=== PATIENT | female | born 1970 | race Caucasian/White ===

== ENCOUNTER 2017-01-13 19:28 | Emergency (ER) | payer OTHER ==
[~2017-01-13] VITALS: Ht 165.1 cm; Wt 96.3 kg
[~2017-01-13 19:28] MED LIST: HYDR-2768 PO; NAPR220T95 PO; PRIN20TA2 PO
[2017-01-13 19:46] VITALS: BP 130/74; PULSE 89; TEMP 98.5; O2SAT 98
[2017-01-13 20:05] VITALS: BP 133/93; PULSE 87; RESP 18; TEMP 98.5; O2SAT 96
[2017-01-13] MEDS ORDERED: NORV2.5T PO (20:05)
[2017-01-13] MEDS ORDERED: LISI-515 PO (20:05)
[2017-01-13] MEDS ORDERED: HYDR25TA5 PO (20:05)
--- NOTE | 2017-01-13 20:24 | PD ---
HPI Chief Complaint: Chest Pain Time Seen by Provider: 20:17 Travel History International Travel<30 days: No Contact w/Intl Traveler<30days: No Traveled to known affect area: No History of Present Illness HPI 46-year-old female presents to the emergency department for complaint of retrosternal and right-sided chest pain that has now moved to the left chest since last evening. Patient rates discomfort 7/10 in intensity. Patient denies any abdominal pain. Patient does report pain has radiated into the back. Patient denies any shortness of breath sweats nausea or vomiting. Patient states has had similar discomfort although of less intensity and shorter duration in the past but is unable to identify when. He has not been recent. Patient has history of hypertension but denies personal history of diabetes dyslipidemia or tobacco use. Patient is status post hysterectomy. Patient denies any prior history of gallbladder disease gastritis peptic ulcer disease or pancreatitis. Patient denies family history of premature onset heart disease. Patient has used multiple [id number] antacid preparations without symptomatic relief. Patient was able to eat toast today without worsening symptoms. Patient did not drinking fluids seem to aggravate her symptoms. Last evening's meal was a flat bread mozzarella sandwich and did not associate symptom onset postprandial. PFSH Past Medical History Narrative Medical Hypertension migraine MRSA nasal infection pneumonia hysterectomy tubal ligation ; no tobacco use; nursing notes reviewed Cancer: No Cardiovascular Problems: No Diabetes: No Diminished Hearing: No Endocrine: No Gastrointestinal Disorders: No Glaucoma: No Genitourinary: No Hepatitis: No Hiatal Hernia: No Hypertension: Yes Immune Disorder: No Implanted Vascular Access Dvce: No Medical other: No Musculoskeletal: No Neurologic: No Psychiatric: No Reproductive: Yes (posterior repair) Respiratory: Yes (hx of pneumonia in the 90's) Integumentary: Yes (MSRA OF NOSE 2 YEARS AGO) Migraines: Yes Thyroid Disease: No Tetanus Vaccination: Unknown Influenza Vaccination: Yes ?: Not Tubal Ligation: Yes Past Surgical History AICD: No Gynecologic Surgery: Yes (hysterectomy tubal and ablation) Hysterectomy: Yes Joint Replacement: No Pacemaker: No Other Surgery: Yes (TUBAL LIGATION ABLATION) Social History Alcohol Use: Yes (SOCIALLY) Tobacco Use: No Substance Use: No Allergies-Medications (Allergen,Severity, Reaction): Coded Allergies: No Known Allergies (Verified , 01/13/17) Reported Meds & Prescriptions Reported Meds & Active Scripts Active Reported Norvasc (Amlodipine Besylate) 2.5 Mg Tab 2.5 Mg PO DAILY Hydrochlorothiazide 25 Mg Tab 25 Mg PO DAILY Lisinopril 20 Mg Tab 20 Mg PO BID Review of Systems Except as stated in HPI: all other systems reviewed are Neg General / Constitutional: No: Fever, Chills HENT: No: Congestion Cardiovascular: Positive: Chest Pain or Discomfort Respiratory: No: Shortness of Breath Gastrointestinal: No: Nausea, Vomiting, Abdominal Pain Genitourinary: No: Flank Pain Musculoskeletal: No: Myalgias, Arthralgias Skin: No Rash Neurologic: No: Weakness Psychiatric: No: Anxiety Hematologic/Lymphatic: No: Lymph Node Enlargement Physical Exam Narrative GENERAL: Well-developed well-nourished female in no acute distress no respiratory distress SKIN: Warm and dry. HEAD: Normocephalic. EYES: No scleral icterus. No injection or drainage. NECK: Supple, trachea midline. No JVD or lymphadenopathy. CARDIOVASCULAR: Regular rate and rhythm without murmurs, gallops, or rubs. RESPIRATORY: Breath sounds equal bilaterally. No accessory muscle use. GASTROINTESTINAL: Abdomen soft, non-tender, no reproducible Hewitt's sign, no guarding or rebound, nondistended. MUSCULOSKELETAL: No cyanosis, or edema. BACK: Nontender without obvious deformity. No CVA tenderness. Data Data Last Documented VS Vital Signs Date Time Temp Pulse Resp B/P Pulse Ox O2 Delivery O2 Flow Rate FiO2 01/13/17 22:50 82 18 117/74 96 Room Air 01/13/17 20:05 98.5 Orders Electrocardiogram (01/13/17 20:17) Ckmb (Isoenzyme) Profile (01/13/17 20:17) Complete Blood Count With Diff (01/13/17 20:17) Comprehensive Metabolic Panel (01/13/17 20:17) Magnesium (Mg) (01/13/17 20:17) Prothrombin Time / Inr (Pt) (01/13/17 20:17) Act Partial Throm Time (Ptt) (01/13/17 20:17) Troponin I (01/13/17 20:17) Lipase (01/13/17 20:17) Chest, Single Ap (01/13/17 20:17) Ecg Monitoring (01/13/17 20:17) Bilateral Bp Monitoring (01/13/17 20:17) Iv Access Insert/Monitor (01/13/17 20:17) Oximetry (01/13/17 20:17) Oxygen Administration (01/13/17 20:17) Aspirin Chew (Aspirin Chew) (01/13/17 20:30) Sodium Chloride 0.9% Flush (Ns Flush) (01/13/17 20:30) Nitroglycerin Sl (Nitrostat Sl) (01/13/17 20:30) Sodium Chlor 0.9% 1000 Ml Inj (Ns 1000 M (01/13/17 20:30) Pantoprazole Inj (Protonix Inj) (01/13/17 20:30) Ketorolac Inj (Toradol Inj) (01/13/17 22:00) Troponin I (01/13/17 22:26) Ckmb (Isoenzyme) Profile (01/13/17 22:26) Electrocardiogram (01/13/17 ) Labs Laboratory Tests Test 01/13/17 01/13/17 20:20 22:30 White Blood Count 6.7 TH/MM3 Red Blood Count 4.52 MIL/MM3 Hemoglobin 13.3 GM/DL Hematocrit 39.7 % Mean Corpuscular Volume 87.9 FL Mean Corpuscular Hemoglobin 29.5 PG Mean Corpuscular Hemoglobin 33.6 % Concent Red Cell Distribution Width 12.3 % Platelet Count 406 TH/MM3 Mean Platelet Volume 7.9 FL Neutrophils (%) (Auto) 52.0 % Lymphocytes (%) (Auto) 39.4 % Monocytes (%) (Auto) 6.6 % Eosinophils (%) (Auto) 1.0 % Basophils (%) (Auto) 1.0 % Neutrophils # (Auto) 3.5 TH/MM3 Lymphocytes # (Auto) 2.6 TH/MM3 Monocytes # (Auto) 0.4 TH/MM3 Eosinophils # (Auto) 0.1 TH/MM3 Basophils # (Auto) 0.1 TH/MM3 CBC Comment DIFF FINAL Differential Comment Prothrombin Time 10.5 SEC Prothromb Time International 1.0 RATIO Ratio Activated Partial 26.4 SEC Thromboplast Time Sodium Level 139 MEQ/L Potassium Level 3.7 MEQ/L Chloride Level 103 MEQ/L Carbon Dioxide Level 29.0 MEQ/L Anion Gap 7 MEQ/L Blood Urea Nitrogen 12 MG/DL Creatinine 0.99 MG/DL Estimat Glomerular Filtration 60 ML/MIN Rate Random Glucose 106 MG/DL Calcium Level 9.2 MG/DL Magnesium Level 2.3 MG/DL Total Bilirubin 0.2 MG/DL Aspartate Amino Transf 17 U/L (AST/SGOT) Alanine Aminotransferase 35 U/L (ALT/SGPT) Alkaline Phosphatase 63 U/L Total Creatine Kinase 69 U/L 55 U/L Troponin I LESS THAN 0.02 LESS THAN 0.02 NG/ML NG/ML Total Protein 7.8 GM/DL Albumin 3.9 GM/DL Lipase 198 U/L MDM Medical Decision Making Medical Screen Exam Complete: Yes Emergency Medical Condition: Yes Medical Record Reviewed: Yes Interpretation(s) ck: 69, not elevated; troponin I: Less than 0.02, not elevated ck:55, not elevated ; troponin I: less than 0.02, not elevated Last Impressions Chest X-Ray 01/13/172016 Signed Impressions: Service Date/Time: Sunday, January 13, 2017 20:31 - CONCLUSION: Normal examination. Francisco J Bustillo MD CBC & BMP Diagram 01/13/17 20:20 Vital Signs Date Time Temp Pulse Resp B/P Pulse Ox O2 Delivery O2 Flow Rate FiO2 01/13/17 21:39 83 18 114/77 96 Room Air 01/13/17 20:57 137/86 136/80 01/13/17 20:30 97 Room Air 01/13/17 20:30 18 97 Room Air 01/13/17 20:05 87 18 98 Room Air 01/13/17 20:05 98.5 87 18 133/93 96 Room Air 01/13/17 19:46 98.5 89 130/74 98 Differential Diagnosis Chest pain, atypical chest pain, ACS,: Infarction, biliary colic, gastritis, peptic ulcer disease, pancreatitis, esophageal spasm, PE; also to consider but less suspicion for aortic dissection or aortic aneurysm Narrative Course Patient placed on technology education instructor IV access obtained EKG performed shows sinus rhythm rate [address] elevation or injury pattern change noted nonspecific lateral ST segment flattening; patient administered aspirin 160 mg as well as sublingual nitroglycerin with maintenance IV fluids normal saline 100 cc per hour; specimen collected and sent for resulting patient also administer Protonix 40 mg IV. Patient's risk factor for heart disease status post hysterectomy and hypertension however review of medical records indicates she did have a nonischemic stress test 2015 also no tobacco use no dyslipidemia no diabetes and no family history of CAD. Based on duration of symptoms and location of symptoms also suspicious for biliary colic. Patient denies any change in symptoms after sublingual nitroglycerin; symptoms somewhat improved after Toradol 30 mg IV; at 22:30 p.m. patient reports that pain is most noticeable now only with swallowing or swallowing fluids; discussed with patient observation admission for chest pain center protocol with serial cardiac enzymes EKG and cardiology assessment muscle stress test in the a.m. Patient does not want to stay for observation admission for serial enzymes or EKG but after bedside discussion with patient and spouse agreeable to stay for second set of cardiac enzymes and repeat EKG. Repeat EKG sinus rhythm no acute ST elevation or injury pattern change essentially unchanged from prior studies 09/2009; repeat cardiac enzymes not elevated; symptoms have continued to resolve. Patient is stable for outpatient management at this time and close follow-up with primary care provider on Sunday ; is encouraged to return to the emergency department before for any concerns or change in condition. Diagnosis Primary Impression: Chest pain, atypical Referrals: Primary Care Physician 2 days Patient Instructions: General Instructions Additional Instructions: Follow clear liquid to bland diet avoiding fried and fatty foods and dairy products advance diet as tolerated Follow-up with primary care provider call office on Sunday to schedule follow- up appointment Return to the emergency department for recurrent discomfort or any concerns May use [id number] Phazyme/simethicone per package directions as needed Disposition: 01 DISCHARGE HOME Condition: Stable Zuleika Pierce MD January 13, 2017 20:24
[2017-01-13 20:30] VITALS: RESP 18; O2SAT 97
[2017-01-13] MEDS ORDERED: SODIUM CHLOR 0.9% 1000 ML INJ 1,000 ML IV SCH (20:30)
[2017-01-13] MEDS ORDERED: PANTOPRAZOLE SODIUM 40 MG VIAL IV PUSH ONE (20:30)
[2017-01-13] MEDS ORDERED: SODIUM CHLORIDE 0.9% FLUSH 10 ML FLUSH IVF PRN (20:30)
[2017-01-13] MEDS ORDERED: ASPIRIN 81 MG CHEW TAB PO ONE (20:30)
[2017-01-13 20:34] LABS: AUTOMATED NEUTROPHIL # 3.5 TH/MM3 (1.8-7.7); BASOPHIL # 0.1 TH/MM3 (0-0.2); EOSINOPHIL # 0.1 TH/MM3 (0-0.4); HEMATOCRIT 39.7 % (35.0-46.0); HEMO FLAGS DIFF FINAL; LYMPH % 39.4 % (9.0-44.0); LYMPHOCYTE # 2.6 TH/MM3 (1.0-4.8); MEAN CELL VOLUME 87.9 FL (80.0-100.0); MEAN CORPUSCULAR HEMOGLOBIN 29.5 PG (27.0-34.0); MEAN CORPUSCULAR HGB CONC 33.6 % (32.0-36.0); MONO % 6.6 % (0.0-8.0); PLATELET COUNT 406 TH/MM3 (150-450); RED BLOOD COUNT 4.52 MIL/MM3 (4.00-5.30); RED CELL DISTRIBUTION WIDTH 12.3 % (11.6-17.2); WHITE BLOOD COUNT 6.7 TH/MM3 (4.0-11.0)
[2017-01-13] MEDS: NITROGLYCERIN 0.4 MG SL 25 TABS/BTL SL SCH ×3 (20:37→21:13)
[2017-01-13 20:42] LABS: CHLORIDE 103 MEQ/L (98-107); POTASSIUM 3.7 MEQ/L (3.5-5.1); SODIUM (NA) 139 MEQ/L (136-145)
--- NOTE | 2017-01-13 20:42 | RADHPO ---
EXAM DATE/TIME: 01/13/2017 20:31 [facility] COMPARISON: No previous studies available for comparison. INDICATIONS : Chest pain. MEDICAL HISTORY : None. SURGICAL HISTORY : None. ENCOUNTER: Initial ACUITY: 2 days PAIN SCORE: 7/10 LOCATION: Bilateral chest FINDINGS: A single view of the chest demonstrates the lungs to be symmetrically aerated without evidence of mas s, infiltrate or effusion. The cardiomediastinal contours are unremarkable. Osseous structures are intact. CONCLUSION: Normal examination. Francisco J Bustillo MD on January 13, 2017 at 20:40 Board Certified Radiologist. This report was verified electronically.
[2017-01-13 20:46] LABS: ANION GAP 7 MEQ/L (5-15)
[2017-01-13 20:47] LABS: BLOOD UREA NITROGEN 12 MG/DL (7-18); MAGNESIUM 2.3 MG/DL (1.5-2.5)
[2017-01-13 20:48] LABS: APTT (PATIENT) 26.4 SEC (24.3-30.1); PROTHROMBIN TIME - PATIENT 10.5 SEC (9.8-11.6)
[2017-01-13 20:49] LABS: ALT (GPT) 35 U/L (10-53); AST (GOT) 17 U/L (15-37)
[2017-01-13 20:50] LABS: GLOMERULAR FILTRATION RATE 60 ML/MIN (>89)
[2017-01-13 20:51] LABS: TOTAL BILIRUBIN ADULT 0.2 MG/DL (0.2-1.0)
[2017-01-13 20:52] LABS: ALKALINE PHOSPHATASE 63 U/L (45-117)
[2017-01-13 20:57] VITALS: BP_SYST 136; BP_SYST 137; BP_DIAS 80; BP_DIAS 86
[2017-01-13 21:32] LABS: CREATINE KINASE 69 U/L (26-192)
[2017-01-13 21:39] VITALS: BP 114/77; PULSE 83; RESP 18; O2SAT 96
[2017-01-13] MEDS ORDERED: KETOROLAC TROMETHAMINE 30 MG/ML (IVP) VIAL IV PUSH ONE (22:00)
[2017-01-13 22:50] VITALS: BP 117/74; PULSE 82; RESP 18; O2SAT 96
[2017-01-13 23:04] LABS: CREATINE KINASE 55 U/L (26-192)
--- NOTE | 2017-01-14 16:52 | EKG ---
Date Performed: 01/13/2017 Time Performed: 20:05:04 PTAGE: 46 years EKG: Sinus rhythm Left axis deviation Possible anterior infarct - age undetermined Lateral T wave changes are nonspeci fic Abnormal ECG PREVIOUS TRACING : 12/10/2014 09.58 Compared to prior tracing no significant change DOCTOR: Paige Rodriguez Interpretating Date/Time 01/14/2017 16:49:06
--- NOTE | 2017-01-14 16:53 | EKG ---
Date Performed: 01/13/2017 Time Performed: 22:31:12 PTAGE: 46 years EKG: Sinus rhythm with borderline 1st degree A-V block Left axis deviation Possible anterior infarct - age undetermine d Inferior/lateral ST-T changes are nonspecific Abnormal ECG PREVIOUS TRACING : 01/13/2017 20.05 Compared to prior tracing no significant change DOCTOR: Paige Rodriguez Interpretating Date/Time 01/14/2017 16:49:15
== END 2017-01-13 23:41 | disposition home or self-care (01) ==
LOC: PHED 19:28
DX: R07.9 Chest pain, unspecified (principal); R94.31 Abnormal electrocardiogram [ECG] [EKG]; I10 Essential (primary) hypertension; Z86.14 Personal history of Methicillin resistant Staphylococcus aureus infection
CPT/HCPCS: 71010; 80053; 82550; 83690; 83735; 84484; 85025; 85610; 85730; 93005; 96361; 96374; 96375; 99285; C9113; J1885; J7030

== ENCOUNTER → 2017-03-09 | Outpatient (CLI) | payer OTHER ==
[~2017-03-09] MED LIST changes: -HYDR-2768 PO; +HYDR25TA5 PO; +LISI-515 PO; -NAPR220T95 PO; +NORV2.5T PO; -PRIN20TA2 PO
[2017-03-09 08:19] LABS: AUTOMATED NEUTROPHIL # 3.1 TH/MM3 (1.8-7.7); BASOPHIL % 0.2 % (0.0-2.0); EOSINOPHIL # 0.1 TH/MM3 (0-0.4); EOSINOPHIL % 1.3 % (0.0-4.0); HEMATOCRIT 38.1 % (35.0-46.0); HEMO FLAGS DIFF FINAL; LYMPH % 36.5 % (9.0-44.0); LYMPHOCYTE # 2.1 TH/MM3 (1.0-4.8); MEAN CELL VOLUME 88.5 FL (80.0-100.0); MEAN CORPUSCULAR HGB CONC 32.8 % (32.0-36.0); MONO % 7.5 % (0.0-8.0); NEUT % 54.5 % (16.0-70.0); PLATELET COUNT 376 TH/MM3 (150-450); RED CELL DISTRIBUTION WIDTH 13.2 % (11.6-17.2); WHITE BLOOD COUNT 5.7 TH/MM3 (4.0-11.0)
== END ==
LOC: CLAB 08:00
PROVIDERS: ATTEND Surgery
DX: R10.11 Right upper quadrant pain (principal)
CPT/HCPCS: 36415; 85025

== ENCOUNTER → 2017-03-14 | Day surgery (SDC) | payer OTHER ==
[~2017-03-14] MED LIST changes: +ACETAMINOPHEN 1000 MG/100 ML VIAL IV ONE; +ACETAMINOPHEN/HYDROcodone 325 MG/5 MG TAB ONE; +BUPIVACAINE/EPINEPHRINE 0.5% 50 ML VIAL ONE; +KETOROLAC TROMETHAMINE 30 MG/ML (IVP) VIAL IV PUSH ONE; +LACTATED RINGER'S 1000 ML INJ 1,000 ML ONE; +MEPERIDINE HCL 50 MG/ML VIAL ONE; +MIDAZOLAM HCL 2 MG/2 ML VIAL ONE; +MORPHINE SULFATE 4 MG/ML INJ ONE; +ONDANSETRON HCL 4 MG/2 ML VIAL IV PUSH ONE; +PROPOFOL 200 MG/20 ML AMP IV ONE; +ceFAZolin INJ 1,000 MG VIAL ONE; +metroNIDAZOLE 500 MG INJ 100 ML IV ONE
--- NOTE | 2017-03-14 11:34 | TN ---
cc: RAUL INGRAM M.D. DATE OF SURGERY: 03/14/2017 PREOPERATIVE DIAGNOSIS Cholelithiasis, cholecystitis. POSTOPERATIVE DIAGNOSIS Cholelithiasis, cholecystitis, right lobe liver mass. PROCEDURE 1. Laparoscopic cholecystectomy. 2. Laparoscopic liver biopsy right lobe, 3 cm from the gallbladder. ANESTHESIA General. SURGEON Dr. Ingram [employer] INTELLIGENCE OFFICER SURGEON Dr. Moon INDICATIONS This is a pleasant 46-year-old female who had symptomatic cholelithiasis and cholecystitis. Plans were made for above. Intraoperatively it was found that she also had a somewhat unusual lobulated firm mass in the underside of the liver on the right side just about 3 cm from the gallbladder. I had the surgical oncologist come in, Dr. Moon, who felt it was advisable to biopsy that as well. DETAILS OF PROCEDURE The patient was brought to the operating room and placed in the supine position. After general anesthesia a timeout was done. The abdomen was prepped with Betadine. We make an incision just below the umbilicus. A 10 mm trocar is introduced. The camera is introduced. Two other working ports are placed, 5 mm below the xiphoid and 5 mm in between the two previously placed ports. The gallbladder can be seen. This liver mass is seen. Photos are taken. The gallbladder is grasped superior and laterally. It is obviously chronically inflamed. We dissect down identifying the cystic duct and cystic artery both of which are doubly ligated and transected. The gallbladder is then teased off the gallbladder bed, placed into an EndoCatch and pulled out through the umbilical incision. We then irrigate. Hemostasis is assured. We then make a small skin incision in the right upper quadrant. The biopsy device is used to obtain two good core biopsies of this liver mass that measures approximately 2 cm. After its removal we are able to cauterize around it to create hemostasis from the biopsy site. There is minimal bleeding. The other portion of the liver looks completely normal. After this was done the irrigating solution and CO2 is removed. We check our dissection site and there is excellent hemostasis without biliary leakage. The trocars are removed and the fascial incision at the umbilicus is closed with 0 Vicryl, skin closed with 4-0 Vicryl. A sterile bandage is applied. The patient tolerated the procedure well. No immediate post-op complication. MD GA Castillo/KT /11:22 AM /11:29 AM
== END | disposition home or self-care (01) ==
LOC: ESDC 07:06
PROVIDERS: ATTEND Surgery
DX: K80.10 Calculus of gallbladder with chronic cholecystitis without obstruction (principal); R16.0 Hepatomegaly, not elsewhere classified
CPT/HCPCS: 00790; 47001; 47562; 88304; 88307; 88313; J0131; J0690; J1885; J2175; J2250; J2270; J2405; J3010; J7120

== ENCOUNTER → 2017-05-18 | Outpatient (CLI) | payer OTHER ==
[~2017-05-18] MED LIST changes: -ACETAMINOPHEN 1000 MG/100 ML VIAL IV ONE; -ACETAMINOPHEN/HYDROcodone 325 MG/5 MG TAB ONE; -BUPIVACAINE/EPINEPHRINE 0.5% 50 ML VIAL ONE; -KETOROLAC TROMETHAMINE 30 MG/ML (IVP) VIAL IV PUSH ONE; -LACTATED RINGER'S 1000 ML INJ 1,000 ML ONE; -MEPERIDINE HCL 50 MG/ML VIAL ONE; -MIDAZOLAM HCL 2 MG/2 ML VIAL ONE; -MORPHINE SULFATE 4 MG/ML INJ ONE; -ONDANSETRON HCL 4 MG/2 ML VIAL IV PUSH ONE; -PROPOFOL 200 MG/20 ML AMP IV ONE; -ceFAZolin INJ 1,000 MG VIAL ONE; -metroNIDAZOLE 500 MG INJ 100 ML IV ONE
[2017-05-18 08:28] LABS: AUTOMATED NEUTROPHIL # 2.8 TH/MM3 (1.8-7.7); BASOPHIL # 0.1 TH/MM3 (0-0.2); BASOPHIL % 1.2 % (0.0-2.0); EOSINOPHIL # 0.1 TH/MM3 (0-0.4); EOSINOPHIL % 1.8 % (0.0-4.0); HEMATOCRIT 37.3 % (35.0-46.0); HEMO FLAGS DIFF FINAL; LYMPHOCYTE # 1.8 TH/MM3 (1.0-4.8); MEAN CELL VOLUME 90.1 FL (80.0-100.0); MEAN CORPUSCULAR HEMOGLOBIN 30.5 PG (27.0-34.0); MEAN CORPUSCULAR HGB CONC 33.9 % (32.0-36.0); MONO % 8.1 % (0.0-8.0); NEUT % 54.9 % (16.0-70.0); PLATELET COUNT 338 TH/MM3 (150-450); RED BLOOD COUNT 4.14 MIL/MM3 (4.00-5.30); RED CELL DISTRIBUTION WIDTH 13.5 % (11.6-17.2); WHITE BLOOD COUNT 5.2 TH/MM3 (4.0-11.0)
[2017-05-18 08:55] LABS: WESTERGREN SEDIMENTATION RATE 22 mm/hr (0-20)
== END ==
LOC: CLAB 07:59
PROVIDERS: ATTEND Family Medicine
DX: M25.472 Effusion, left ankle (principal)
CPT/HCPCS: 36415; 84550; 85025; 85652

== ENCOUNTER → 2017-07-25 | Outpatient (CLI) | payer OTHER | LOC: CLAB 14:57 | PROVIDERS: ATTEND Family Medicine | DX: E79.0 Hyperuricemia without signs of inflammatory arthritis and tophaceous disease (principal) | CPT/HCPCS: 36415; 84550 ==

== ENCOUNTER → 2017-10-19 | Outpatient (CLI) | payer OTHER ==
[2017-10-19 12:28] LABS: THYROXINE (T4) 9.6 MCG/DL (4.8-13.9)
== END ==
LOC: CLAB 11:37
PROVIDERS: ATTEND Family Medicine
DX: L65.9 Nonscarring hair loss, unspecified (principal)
CPT/HCPCS: 36415; 84436; 84443